=== PATIENT | female | born 1950 ===

== ENCOUNTER 2018-05-30 13:04 | Inpatient (IN) ==
--- NOTE | 2018-05-30 09:47 | Discharge Summary ---
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: with fdc use Diabetes mellitus complication status: with unspecified complications Qualified Code(s): E11.8 - Type 2 diabetes mellitus with unspecified complications; Z79.4 - longterm (current) use of insulin (4) Asthma Priority: Secondary Status: Chronic Qualifiers: Asthma severity: unspecified severity Asthma persistence: unspecified Asthma complication type: unspecified Qualified Code(s): J45.909 - Unspecified asthma, uncomplicated (5) JAYDEN (obstructive sleep apnea) Priority: Secondary Status: Chronic (6) HTN (hypertension) Priority: Secondary Status: Chronic Qualifiers: Hypertension type: unspecified Qualified Code(s): I10 - Essential (primary) hypertension (7) CKD (chronic kidney disease) stage 3, GFR 30-59 ml/min Priority: Secondary Status: Chronic (8) Gout Priority: Secondary Status: Chronic Qualifiers: Gout site: unspecified site Gout etiology: unspecified cause Chronicity: unspecified Qualified Code(s): M10.9 - Gout, unspecified (9) Obesity Priority: Secondary Status: Chronic Qualifiers: Obesity type: unspecified obesity type Obesity classification: adult class 3 (BMI >= 40) Serious obesity comorbidity presence: unspecified whether serious comorbidity present Body mass index: BMI 50.0-59.9 Qualified Code(s): E66.01 - Morbid (severe) obesity due to excess calories; Z68.43 - Body mass index (BMI) 50-59.9, adult (10) History of breast cancer Priority: Secondary Status: Chronic - Hospital Course Hospital course: Ms. Pearl is a 67 year old female POD#1 Date of procedure: 05/30/18 Pre-op diagnosis: Left shoulder cuff tear arthropathy Post-op diagnosis: same Procedure: Procedure: Total Shoulder Replacment Reverse, left Patient states doing well with no concerns. States pain is well controlled with her home dose of Tramadol. States intent to use Tramadol and not use Oxycodone. *BP results reviewed and discussed with nursing - patient requiring manual check in leg secondary to IV and surgery in upper extremities. At baseline measures with manual checks. Alert and oriented x 3 sitting in chair eating lunch. Left arm in sling. No swelling noted. 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 Neurovascularly intact b/l UE. Home with outpatient therapy today Restrictions reviewed Patient to keep outpatient follow up as scheduled. Short CBC 05/31/18 05/30/18 Range/Units 04:57 16:30 Hgb 12.2 12.6 (11.5-15.4) g/dL Hct 37.0 39.3 (35.3-44.9) % BMP 05/31/18 Range/Units 04:57 Sodium 133 L (136-145) mEq/L Potassium 4.0 (3.5-5.1) mEq/L Chloride 99 (98-107) mEq/L Carbon Dioxide 25 (23-29) mEq/L BUN 19 (8-23) mg/dL Creatinine 1.02 (0.60-1.20) mg/dL Glucose 271 H (70-105) mg/dL Calcium 8.9 (8.6-10.3) mg/dL Vital Signs Temp Pulse Resp BP Pulse Ox 05/31/18 09:34 147/93 05/31/18 08:16 98.3 F 78 18 178/127 93 05/31/18 04:33 98.8 F 98 18 150/79 94 05/31/18 03:59 14 94 05/31/18 03:24 98.7 F 90 16 151/76 96 05/30/18 23:25 98.3 F 94 17 151/78 97 05/30/18 20:50 98.2 F 85 15 142/85 98 05/30/18 19:50 98.4 F 91 15 163/92 92 05/30/18 19:21 98.7 F 84 17 123/79 97 05/30/18 18:50 98.2 F 88 16 149/88 97 05/30/18 18:20 84 16 141/88 94 05/30/18 17:50 84 16 130/82 97 05/30/18 17:35 98.2 F 89 14 132/84 97 05/30/18 17:32 98 05/30/18 17:20 98.7 F 83 16 126/82 97 Intake and Output 05/31/18 05/31/18 05/31/18 07:59 15:59 23:59 Intake Total 200 / 200 240 / 240 Balance 200 / 200 240 / 240 Intake: Oral 200 / 200 240 / 240 Other: Meal Breakfast Percent of Meal Consumed 65% Weight 117.934 kg Blood Glucose* 254 278 Patient Weight 05/31/18 23:59 Weight 117.934 kg - Time Spent with Patient Total time spent providing and/or coordinating discharge services: - Discharge Medications Home Medications: Albuterol Sulfate [Proair Hfa] 2 puff IH Q4-6H PRN 05/30/18 [History] Allopurinol [Zyloprim 300 MG] 300 mg PO DAILY 05/30/18 [History] Anastrozole [Arimidex] 1 mg PO DAILY 05/30/18 [History] Aspirin [Adult Aspirin Regimen] 81 mg PO DAILY 05/30/18 [History] Azithromycin 250 mg PO PER PKG DI 05/30/18 [History] Budesonide/Formoterol 80/4.5 [Symbicort 80/4.5] 2 puff IH BID 05/30/18 [History] Calcium Carbonate/Vitamin D3 [Caltrate 600 + D Soft Chew Tab] 1 tab PO DAILY 05/30/18 [History] Cetirizine HCl [24Hour Allergy] 10 mg PO DAILY 05/30/18 [History] Duloxetine HCl [Cymbalta] 60 mg PO DAILY 05/30/18 [History] Furosemide [Lasix] 40 mg PO DAILY 05/30/18 [History] Gabapentin [Neurontin] 400 mg PO BID 05/30/18 [History] Insulin LISPRO [HumaLOG] 10 - 30 unit SQ TIDAC 05/30/18 [History] Insulin NPH, HUMAN [HumuLIN N] 25 unit SQ QPM 05/30/18 [History] Insulin NPH, HUMAN [HumuLIN N] 30 unit SQ QAM 05/30/18 [History] Ipratropium/Albuterol Neb [Duoneb] 3 ml IH Q6HR 05/30/18 [History] Losartan Potassium 50 mg PO BID 05/30/18 [History] Melatonin 10 mg PO HS PRN 05/30/18 [History] Metoprolol Succinate 100 mg PO BID 05/30/18 [History] Montelukast [Singulair] 10 mg PO HS 05/30/18 [History] Multivitamin [One Daily Multivitamin] 1 tab PO DAILY 05/30/18 [History] Omeprazole [PriLOSEC] 20 mg PO DAILY 05/30/18 [History] Oxybutynin Chloride [Ditropan Xl] 10 mg PO DAILY 05/30/18 [History] Simvastatin [Zocor] 20 mg PO HS 05/30/18 [History] Spironolactone 25 mg PO DAILY 05/30/18 [History] Tramadol HCl [Ultram] 50 mg PO TID PRN 05/30/18 [History] Vit A/Vit C/Vit E/Zinc/Copper [Preservision Areds Tablet] 1 tab PO DAILY 05/30/18 [History] Allergies/Adverse Reactions: Allergy/AdvReac Type Severity Reaction Status Date / Time Amoxicillin [From Augmentin] AdvReac Vomiting Verified 05/30/18 13:57 blue dye AdvReac See Verified 05/30/18 13:57 Comments cefdinir AdvReac Itching Verified 05/30/18 13:57 clavulanic acid AdvReac Vomiting Verified 05/30/18 13:57 [From Augmentin] linezolid [From Zyvox] AdvReac See Verified 05/30/18 13:57 Comments morphine AdvReac Vomiting Verified 05/30/18 13:57 pentazocine [From Talwin] AdvReac Vomiting Verified 05/30/18 13:57 rifampin AdvReac Vomiting Verified 05/30/18 13:57 Date of admission: 05/30/18 Primary care physician: Adelfo Rodriguez MD Discharging clinician: Rell Camp - Patient Status Disposition: Home, Self-Care Condition: Good Functional capacity at discharge: independent ambulation Overall status at discharge: patient is progressing back to baseline - Discharge Instructions Follow Up With: Adelfo Rodriguez MD [Primary Care Provider] - Liana Obando PAC [Physician Size Worker] - 06/09/18 9:15 am Additional Instructions: Discharge Instructions: Total Shoulder Please call [facility] ([phone]), your Primary Care Physician, or report to the Emergency Room if you have any of the following symptoms: Nausea, vomiting, fever greater that 101.5, swelling, chest pain, shortness of breath, increased pain/redness/drainage/odor for your incision site, numbness/tingling, or any other concerning symptoms. ACTIVITY: Always keep your arm in the sling. Do not raise your arm away from your body. Do not use your arm to help with getting in or out of bed. No weight bearing permitted. Only perform those exercises given to you by your therapist. Incentive Spirometer 10 times an hour. MEDICATIONS: Upon discharge resume your home medications. Take all the medications as prescribed. Take a stool softener if taking narcotic pain medications. Stool softeners are only effective if you drink enough fluids. Drink 6-8 glass of water or fluids a day, unless this is not allowed for another health problem. Despite using stool softeners, if you haven't had a bowel movement in 3 days, please switch to a gentle laxative. Gentle laxatives are sold over the counter. You should have a bowel movement within 24 hours, if not call the office. You will be discharged from the hospital with a prescription for pain medication. You are encouraged to decrease the use of narcotic pain medication as tolerated. Should you require a refill, please call the office. [facility] prescribes narcotic pain medication for only 4-6 weeks after surgery. If you require pain medication beyond this time period, you may be referred to your Primary Care Physician or to the Pain Clinic for further evaluation. Plan ahead for refills on pain medication as many narcotics either need to be picked up at the office or mailed. It is best to call 48-72 hours in advance of needing a prescription refill so you don't run out of medication. To help control the post-operative pain, you may take NSAIDs (Aleve,Advil, Motrin, Ibuprofen, Naprosyn) or Tylenol as prescribed on the bottle in addition to the pain medication. WOUND CARE: Leave the dressing on for 7-10 days. You may change the dressing if it becomes saturated greater than 50%. Do not get the dressing wet at anytime. Wash your hands with antibacterial soap, rinse and dry prior to any wound care. If you have minoo the visiting nurse or rehab facility can remove the stapes 10-14 days after surgery and place steri-strips across the wound. Leave the steri-strips in place until they fall off on their own. You may let water from the shower run on top of the steri-strips. If you do not have a visiting nurse or rehab facility, you will need to return to the office at 10-14 days for the minoo to be removed. If you have itching or redness around the dressing call the office. FOLLOW-UP: Please follow up with your surgeon in the orthopedic clinic, as scheduled - Diet and Activity Activity: as per physical therapy Diet: advance to your usual diet
[~2018-05-30 13:04] MED LIST: Acetaminophen IV 1,000 MG/100 ML INFUS..BTL IVPB ONE; Celecoxib 100 MG CAPSULE PO ONE; Famotidine 20 MG/2 ML VIAL IVP ONE; Ringers Solution, Lactated 1,000 ML IVC SCH
[2018-05-30] MEDS ORDERED: *HR* Propofol 200 MG/20 ML VIAL IVP ONE (13:24)
[2018-05-30] MEDS ORDERED: *HR* Midazolam HCl 2 MG/2 ML VIAL ONE (13:24)
[2018-05-30] MEDS ORDERED: *HR* FentaNYL (PF) 100 MCG/2 ML VIAL ONE (13:24)
[2018-05-30] MEDS ORDERED: Lidocaine -MPF 2% 2 ML VIAL ONE (13:25)
[2018-05-30] MEDS ORDERED: Clindamycin 900 MG/50 ML 900 MG/50 ML IV.SOLN IVPB ONE ×2 (13:30→14:01)
[2018-05-30] MEDS ORDERED: *HR* Promethazine 25 MG/ML VIAL IVP PRN (13:39)
[2018-05-30] MEDS ORDERED: *HR* OxyCODONE Immed Rel 5 MG TABLET PO PRN ×2 (13:39→17:23)
[2018-05-30] MEDS ORDERED: *HR* HYDROmorphone (PF) 1 MG/ML SYRINGE IVP PRN (13:39)
[2018-05-30] MEDS ORDERED: *HR* Labetalol 20 MG/4 ML SYRINGE IVP PRN (13:39)
--- NOTE | 2018-05-30 13:41 | History & Physical Report ---
Date of Encounter: 05/30/18 Time of Encounter: 13:41 24 Hour HP Update - Instructions Instructions: If the History and Physical is less than 30 days old and was completed prior to A.M. admission and or procedure and has NOT been updated on calendar day of procedure please complete this update prior to performing procedure. - Update Patient reports changes in Medical Condition: No Changes in examination, assessment, or condition: No Changes in Medication: No Preop tests/diagnostics Reviewed: Yes Surgery Remains Indicated: Yes Consent for Planned Operative Procedure(s) Verified: Yes - Pre-Operative Checklist Preoperative Checklist Indicated: No Prophylactic Antibiotic Ordered: Yes Is VTE Prophylaxis Indicated?: Yes
[2018-05-30] MEDS ORDERED: ROPIVACAINE HCL/PF 0.5% 30 ML VIAL ONE (14:00)
[2018-05-30] MEDS ORDERED: Bupivacaine/Clonidine Syringe 1 EACH SYRINGE ONE (14:00)
[2018-05-30] MEDS ORDERED: Ethanol\\Acetic Acid\\Na Ace\\Ben 1,000 ML IRRIG.SOLN IR ONE (14:03)
--- NOTE | 2018-05-30 14:03 | Anesthesia Evaluation PreOp ---
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 HX Other Medical History: Renal (CKD), Other (MO) Anesthesia History: No Prior Anesthetic Complications : No Alcohol Use: none Drug use: none Medications and Allergies Allergy/AdvReac Type Severity Reaction Status Date / Time Amoxicillin [From Augmentin] AdvReac Vomiting Verified 05/30/18 13:57 blue dye AdvReac See Verified 05/30/18 13:57 Comments cefdinir AdvReac Itching Verified 05/30/18 13:57 clavulanic acid AdvReac Vomiting Verified 05/30/18 13:57 [From Augmentin] linezolid [From Zyvox] AdvReac See Verified 05/30/18 13:57 Comments morphine AdvReac Vomiting Verified 05/30/18 13:57 pentazocine [From Talwin] AdvReac Vomiting Verified 05/30/18 13:57 rifampin AdvReac Vomiting Verified 05/30/18 13:57 - Meds/Allergy Pre-op Review Medications Reviewed: Yes Allergies Reviewed: Yes Beta Blockers on Current Med List: Yes (Metoprolol today 0700) Anesthesia Results - Labs Laboratory Tests 05/25/18 05/27/18 05/27/18 15:22 15:50 15:50 Hgb 13.2 Hct 40.4 Plt Count 233 PT 11.3 INR 1.0 APTT 31.8 Sodium 140 Potassium 3.3 L BUN 23 Creatinine 1.08 - Imaging EKG: report reviewed (SR) Additional studies: ECHO 2017 EF 60%, moderate diastolic dysfunction Anesthesia Exam O2 Sat Height 1.5 m Height 1.5 m Height 1.5 m Weight 117.934 kg Weight 117.934 kg Weight 117.934 kg O2 Sat by Pulse Oximetry 95 O2 Sat by Pulse Oximetry 95 Vital Signs Temp Pulse Resp BP Pulse Ox 98.2 F 87 18 157/83 95 05/30/18 13:38 05/30/18 13:38 05/30/18 13:38 05/30/18 13:38 05/30/18 13:38 Height: 4'11 Weight: 260 lbs NPO (# of Hours): MN Pain Scale: 0 - HEENT Pupil (Motor): Pupils equal, EOMI Mallampati: III Teeth: Poor dentition (chipped teeth) Oral Opening: Less than or equal to 3 - RAIL TRACK LAYER LOC: Oriented RAIL TRACK LAYER Motor: Normal RUE, Normal LUE, Normal RLE, Normal LLE, Normal Face RAIL TRACK LAYER Sensory: Normal: RUE, LUE, RLE, LLE, Face - Cardiac Rhythm: Regular Murmur: None JVD: No Carotid Bruit: No - Pulmonary Breath Sounds: bilateral Clear Respiratory Effort: Symmetrical Anesthesia Assess/Plan ASA Score: 3 (HTN JAYDEN [place] CKD) Level of consciousness: Cooperative Anesthetic Plan: General, Regional Nerve Block Autologous Blood: No Monitoring Plan: Standard Monitors Recovery Plan: PACU (Discussed GA, RA, agrees to proceed)
--- NOTE | 2018-05-30 14:53 | Anesthesia Procedures ---
Date of Encounter: 05/30/18 Time of Encounter: 14:51 Procedures: Anesthesia - Nerve Block Procedure Date: 05/30/18 Time: 14:51 Allergies/Adv Reactions: amoxicillin, blue dye, cefdinir,clavulanic acid linezolid Pre-op Diagnosis: left rotator cuff arthropathy Surgical Procedure: left total shoulder Checklist: Correct Patient Identifier, Correct procedure, History checked Correct side: Left Blood Thinner: No Monitor Applied: BP, Pulse Oximetry Supplemental Oxygen via Nasal Cannula (L/min): 2 Sedation: Versed (mg): 2 Sedation: Fentanyl (mcg): 50 Indication: Post Op Analgesia Pre-op Neuro Deficits: No Block Type: Supraclavicular, Other (scb, icb) Sterile Technique: Yes Ultrasound used: Yes Anatomy identified: Yes Visual spread of Local: Yes Neuro Stimulation: No Blood on Needle Aspiration: No Smooth Injection of Local: Yes Pain with Injection of Local: No Prep: Chlorhexadine Needle: 21 x 100 mm Stimuplex Local: 0.25% Bupivicaine w/Clonidine 20 mcg/cc (10ml with SCB and 10ml with ICB), Ropivacaine (30ml 0.5 % with 8mg decadron) Volume (cc): 50 Number of Attempts: 1 Complications: None/effective block Vitals: Vital Signs/O2 Sat, Most Current Temp Pulse Resp BP Pulse Ox 98.2 F 87 18 157/83 95 05/30/18 13:54 05/30/18 13:54 05/30/18 13:54 05/30/18 13:54 05/30/18 13:54
[2018-05-30] MEDS ORDERED: *HR* PHENYLEPHRINE 1,000 MCG/10 ML SYRINGE IVP ONE (15:22)
[2018-05-30] MEDS ORDERED: Ondansetron 4 MG/2 ML VIAL ONE (15:25)
--- NOTE | 2018-05-30 15:52 | Orthopedic Operative Note ---
Date of procedure: 05/30/18 Pre-op diagnosis: Left shoulder cuff tear arthropathy Post-op diagnosis: same Procedure: Procedure: Total Shoulder Replacment Reverse, left Estimated blood loss: 50 cc Hardware: Metal and polyethylene replacement: Arthrex 24, +2 , 25 screw glenoid baseplate, 4 locking 5.5 screw, 36+4 glenosphere, 5 humeral stem, poly insert 3 Exam Under anesthesia: Full motion no instability Procedural Notes: Irreparable tear rotator cuff. Operative procedure: The patient was brought to the operating room and placed on the operating room table. After general anesthesia was administered the operative shoulder was examined. Findings were noted. The patient was placed in the modified beachchair position. All pressure points were padded appropriately. And the head was stabilized in the neutral position. The operative extremity was prepped and draped in the sterile surgical fashion. The patient received IV antibiotics prior to skin incision. A standard deltopectoral approach was made to the operative shoulder. Incision was made to the skin and subcutaneous tissue,hemo stasis was obtained with Bovie cautery. Using careful blunt dissection the cephalic vein was identified and mobilized medially. The deltopectoral interval was developed and the clavipectoral fascia was incised. The subscap was released off the lesser tuberosity and tagged with #2 FiberWire suture subscap was irreparable. The humerus was dislocated patient noted to have irreparable tear supraspinatus tendon, and the humeral cut was made along the anatomic neck. Anterior and posterior Bankart retractors were placed to expose the glenoid. The glenoid guide was seated and the centering hole was made. It was reamed with the appropriate reamer. The 24, +2, 25 mm screw, baseplate was seated and secured with 4 locking 5.5 screw. The baseplate was irrigated and dried and the 36+4 Glenosphere was seated and secured with the Pollock taper. The Pollock taper was tested and found to be secure, glenosphere fixation was secondarily secured with the central screw. Th e humerus was redislocated and prepared with the diaphyseal reamers, followed by a broaching process up to the appropriate size 5 in the patient's anatomic version. The metaphyseal reamer was then utilized. Trial reduction found the shoulder to be relocatable. Trial components were removed and 5 stem was impacted in place in the patient's anatomic version. Trial reduction found the shoulder to be relocatable and stable with the appropriate 3 Trial component was removed and the real implant was seated and secured the shoulder was reduced. The shoulder had excellent motion and excellent stability and no evidence of dislocation. The deep tissue was irrigated with pulse irrigation. The PA close the shoulder. The deltopectoral interval was closed with a running #1 PDS suture, subcutaneous tissue was irrigated and closed with 0 PDS suture, the skin was closed with Dermabond. The patient was placed in a sterile dressing, abduction brace and extubated. The patient was then transferred to the recovery room in stable condition. Anesthesia: GETA Surgeon: Rell Camp Was there an miner assistant present: Yes Contact Lens Technician: Lorri Caba Estimated blood loss (cc): 50 Condition: stable Disposition: PACU
--- NOTE | 2018-05-30 16:38 | Anesthesia Evaluation Post Op ---
Date of Encounter: 05/30/18 Time of Encounter: 16:45 - Vital Signs Vital Signs: Vital Signs/O2 Sat/Glucose, Most Current Temp Pulse Resp BP Pulse Ox 05/30/18 16:30 83 18 142/83 93 05/30/18 16:20 83 18 141/81 93 05/30/18 16:15 84 16 151/85 94 05/30/18 16:10 98.3 F 100 16 155/93 97 05/30/18 13:54 98.2 F 87 18 157/83 95 05/30/18 13:38 98.2 F 87 18 157/83 95 - Lungs Lungs: Clear Ascult./Percussion - Airway Airway: Non-obstructed - Cardiovascular Regular Rate - Mental Status Mental Status: Alert & Oriented, Answers Appropriately - Pain Pain Scale: 0 - Nausea Vomiting Nausea Vomiting: Not Present - Hydration Hydration: Ice chips - Discharge PostOp Status: Transfer Patient to floor
[2018-05-30 17:13] LABS: Hematocrit 39.3 % (35.3-44.9); Hemoglobin 12.6 g/dL (11.5-15.4)
[2018-05-30] MEDS ORDERED: Naloxone 0.4 MG/ML INJ IVP PRN (17:23)
[2018-05-30] MEDS ORDERED: Ringers Solution, Lactated 1,000 ML IVC SCH (17:23)
[2018-05-30] MEDS ORDERED: Dextrose Gel 15 GM/37.5 ML TUBE PO PRN ×2 (17:23)
[2018-05-30] MEDS ORDERED: MOM Conc 10 ML UD.LIQ PO PRN (17:23)
[2018-05-30] MEDS ORDERED: Sennosides 8.6 MG TABLET PO PRN (17:23)
[2018-05-30] MEDS ORDERED: *HR* Dextrose 50 % in Water (Syg) 50 ML SYRINGE IVP PRN (17:23)
[2018-05-30] MEDS ORDERED: Temazepam 15 MG CAPSULE PO PRN (17:23)
[2018-05-30] MEDS ORDERED: Melatonin 3 MG TABLET PO PRN (17:23)
[2018-05-30] MEDS ORDERED: traMADol 50 MG TABLET PO PRN (17:23)
[2018-05-30] MEDS ORDERED: *HR* OxyCODONE/APAP 5/325 TABLET PO PRN (17:23)
[2018-05-30] MEDS ORDERED: Ondansetron 4 MG/2 ML VIAL IVP PRN (17:23)
[2018-05-30] MEDS ORDERED: D5% in Water 1,000 ML IVC PRN (17:23)
[2018-05-30] MEDS: Insulin LISPRO 300 UNITS/3 ML VIAL SQ SCH (17:54)
[2018-05-30] MEDS ORDERED: Clindamycin 900 MG/50 ML 900 MG/50 ML IV.SOLN IVPB SCH (18:00)
[2018-05-30] MEDS ORDERED: Insulin NPH 100 UNIT/ML (x5UNIT) SQ SCH (18:00)
[2018-05-30] MEDS ORDERED: *HR* Enoxaparin 30 MG/0.3 ML SYRINGE SQ SCH (18:00)
[2018-05-30] MEDS: *HR* Enoxaparin 30 MG/0.3 ML SYRINGE SQ SCH (18:49)
[2018-05-30] MEDS: Ipratropium/Albuterol Neb 3 ML IH SCH ×2 (18:56→22:13)
[2018-05-30] MEDS: Gabapentin 400 MG CAPSULE PO SCH (20:37)
[2018-05-30] MEDS: Metoprolol XL (24 HR) Succ 50 MG TAB.ER.24H PO SCH (20:37)
[2018-05-30] MEDS ORDERED: Insulin LISPRO 300 UNITS/3 ML VIAL SQ SCH (21:00)
[2018-05-30] MEDS: Clindamycin 900 MG/50 ML 900 MG/50 ML IV.SOLN IVPB SCH (22:12)
[2018-05-31] MEDS: Budesonide/Formoterol 80/4.5 MDI IH SCH ×2 (00:10→10:44)
[2018-05-31] MEDS: Ipratropium/Albuterol Neb 3 ML IH SCH ×2 (03:59→10:44)
[2018-05-31 05:35] LABS: Hemoglobin 12.2 g/dL (11.5-15.4)
[2018-05-31 05:55] LABS: BUN/Creatinine Ratio 19 (6-26); Blood Urea Nitrogen 19 mg/dL (8-23); Calcium 8.9 mg/dL (8.6-10.3); Carbon Dioxide 25 mEq/L (23-29); Chloride 99 mEq/L (98-107); Glucose 271 mg/dL (70-105); Osmolality,Calculated 288 (280-300); Sodium 133 mEq/L (136-145); eGFR For Non-African Americans 54 (> 60)
--- NOTE | 2018-05-31 06:36 | Orthopedics Progress Note ---
Date of Encounter: 05/31/18 Time of Encounter: 06:35 Subjective Interval history: Patient was seen this morning doing well without complaints. Afebrile vital signs stable. Operative extremity: Neurovascularly intact Dressing clean dry and intact Calves nontender Assessment and plan: Continue with postoperative care Hematocrit 37 plan for discharge today Objective Vital signs: Vital Signs Temp Pulse Resp BP Pulse Ox 05/31/18 04:33 98.8 F 98 18 150/79 94 05/31/18 03:59 14 94 05/31/18 03:24 98.7 F 90 16 151/76 96 05/30/18 23:25 98.3 F 94 17 151/78 97 05/30/18 20:50 98.2 F 85 15 142/85 98 05/30/18 19:50 98.4 F 91 15 163/92 92 05/30/18 19:21 98.7 F 84 17 123/79 97 05/30/18 18:50 98.2 F 88 16 149/88 97 05/30/18 18:20 84 16 141/88 94 05/30/18 17:50 84 16 130/82 97 05/30/18 17:35 98.2 F 89 14 132/84 97 05/30/18 17:32 98 05/30/18 17:20 98.7 F 83 16 126/82 97 05/30/18 16:50 98.2 F 82 18 143/84 99 05/30/18 16:40 98.2 F 84 18 128/78 97 05/30/18 16:30 83 18 142/83 93 05/30/18 16:20 83 18 141/81 93 05/30/18 16:15 84 16 151/85 94 05/30/18 16:10 98.3 F 100 16 155/93 97 05/30/18 13:54 98.2 F 87 18 157/83 95 05/30/18 13:38 98.2 F 87 18 157/83 95 Intake and Output 05/30/18 05/30/18 05/31/18 15:59 23:59 07:59 Intake Total 200 / 200 Output Total 50 / 50 Balance -50 / -50 200 / 200 Intake: Oral 200 / 200 Output: Estimated Blood Loss 50 / 50 Other: # Voids 1 Weight 117.934 kg 117.934 kg Blood Glucose* 209 251 254 Patient Weight 05/31/18 23:59 Weight 117.934 kg - Labs CBC & BMP: 05/31/18 04:57 05/31/18 04:57 Labs: Abnormal lab results Sodium 133 mEq/L (136-145) L 05/31/18 04:57 Est GFR (Non-Af Amer) 54 (> 60) L 05/31/18 04:57 Glucose 271 mg/dL (70-105) H 05/31/18 04:57 POC Glucose 209 mg/dL (70-99) H 05/30/18 13:17 Consult Discharge Plan - Plan Referrals: Adelfo Rodriguez MD [Primary Care Provider] -
[2018-05-31] MEDS: Clindamycin 900 MG/50 ML 900 MG/50 ML IV.SOLN IVPB SCH (06:41)
[2018-05-31] MEDS: *HR* Enoxaparin 30 MG/0.3 ML SYRINGE SQ SCH (06:41)
[2018-05-31] MEDS ORDERED: NON-FORMULARY MEDICATION 1 EACH EACH (Vit A/Vit C/Vit E/Zinc/Copper [Preservision Areds Ta PO SCH (09:00)
[2018-05-31] MEDS ORDERED: Multivit/Ca/Min/Fe/FA 1 TAB TABLET PO SCH (09:00)
[2018-05-31] MEDS ORDERED: Anastrozole 1 MG TABLET PO SCH (09:00)
[2018-05-31] MEDS ORDERED: Loratadine 10 MG TABLET PO SCH (09:00)
[2018-05-31] MEDS ORDERED: Furosemide 40 MG TABLET PO SCH (09:00)
[2018-05-31] MEDS ORDERED: Cholecalciferol (D-3) 1,000 UNIT TABLET PO SCH (09:00)
[2018-05-31] MEDS ORDERED: Spironolactone 25 MG TABLET PO SCH (09:00)
[2018-05-31] MEDS ORDERED: Insulin NPH 100 UNIT/ML (x5UNIT) SQ SCH (09:00)
[2018-05-31] MEDS ORDERED: Aspirin Enteric Coated 81 MG Tablet PO SCH (09:00)
[2018-05-31 09:35] VITALS: BP 147/93
[2018-05-31] MEDS: Gabapentin 400 MG CAPSULE PO SCH (09:37)
[2018-05-31] MEDS: Metoprolol XL (24 HR) Succ 50 MG TAB.ER.24H PO SCH (09:37)
[2018-05-31] MEDS: Insulin LISPRO 300 UNITS/3 ML VIAL SQ SCH ×2 (09:39→11:43)
== END 2018-05-31 13:40 | disposition home or self-care (01) | DRG 483 ==
LOC: SAMDAY 13:04 → 3NENU 17:17
PROVIDERS: ADMIT Orthopaedic Surgery; ATTEND Orthopaedic Surgery

== ENCOUNTER 2018-12-21 10:09 | Observation (INO) ==
--- NOTE | 2018-12-21 10:37 | Emergency Department Note ---
Disposition Clinical Impression: Syncope Qualifiers: Syncope type: unspecified Qualified Code(s): R55 - Syncope and collapse CRF (chronic renal failure) Qualifiers: Chronic kidney disease stage: unspecified stage Qualified Code(s): N18.9 - Chronic kidney disease, unspecified Disposition: Admitted As Inpatient Condition: Fair Forms: ED Satisfaction Letter Time of Disposition: 13:06 General Adult HPI - General Chief complaint: ED Seizure Stated complaint: n/v Time Seen by Provider: 12/21/18 10:23 Source: EMS Limitations: no limitations Nursing Notes Reviewed: Yes Vital Signs Reviewed: Yes - History of Present Illness HPI Narrative: I did see the patient immediately upon arrival. The story is that she was sitting at the kitchen table and had lightheaded dizziness and she specifically denies vertigo and the did not feel that he was able to help her to her chair and then the patient had a syncopal episode. She did have generalized shaking for the entire time. She is not speaking during this time. This lasted for about one and a half minutes. She then was speaking gibberish, according to the for about 5 minutes after this. The patient currently denies any pain in the head or chest or abdomen or back. Does have some minimal mid posterior neck pain. She has a history of a heart stent and does take Plavix and low-dose aspirin but has not had a stroke in the past. No history of seizures. No biting of the tongue or blood in the mouth. No urinary incontinence. Social history: No smoking, alcohol, drugs. She is here with the and the daughter Pain Scale: 0 - Related Data Home Medications Medication Instructions Recorded Confirmed Albuterol Sulfate [Proair Hfa] 2 puff IH Q4-6H PRN 05/30/18 12/21/18 Allopurinol [Zyloprim 300 MG] 150 - 300 mg PO DAILY 05/30/18 12/21/18 Anastrozole [Arimidex] 1 mg PO DAILY 05/30/18 12/21/18 Aspirin [Adult Aspirin Regimen] 81 mg PO DAILY 05/30/18 12/21/18 Budesonide/Formoterol 80/4.5 2 puff IH BID 05/30/18 12/21/18 [Symbicort 80/4.5] Calcium Carbonate/Vitamin D3 1 tab PO BID 05/30/18 12/21/18 [Caltrate 600 + D Soft Chew Tab] Cetirizine HCl [24Hour Allergy] 10 mg PO DAILY 05/30/18 12/21/18 Duloxetine HCl [Cymbalta] 60 mg PO DAILY 05/30/18 12/21/18 Furosemide [Lasix] 40 mg PO DAILY 05/30/18 12/21/18 Gabapentin [Neurontin] 400 mg PO BID 05/30/18 12/21/18 Insulin LISPRO [HumaLOG] 10 - 30 unit SQ TIDAC 05/30/18 12/21/18 Insulin NPH, HUMAN [HumuLIN N] 25 - 30 unit SQ QAM 05/30/18 12/21/18 Insulin NPH, HUMAN [HumuLIN N] 25 unit SQ QPM 05/30/18 12/21/18 Ipratropium/Albuterol Neb [Duoneb] 3 ml IH Q6HR PRN 05/30/18 12/21/18 Losartan Potassium 50 mg PO DAILY 05/30/18 12/21/18 Melatonin 10 mg PO HS PRN 05/30/18 12/21/18 Metoprolol Succinate 100 mg PO BID 05/30/18 12/21/18 Montelukast [Singulair] 10 mg PO HS 05/30/18 12/21/18 Multivitamin [One Daily 1 tab PO DAILY 05/30/18 12/21/18 Multivitamin] Omeprazole [PriLOSEC] 20 mg PO BID 05/30/18 12/21/18 Oxybutynin Chloride [Ditropan Xl] 10 mg PO DAILY 05/30/18 12/21/18 Spironolactone 25 mg PO DAILY 05/30/18 12/21/18 Tramadol HCl [Ultram] 50 mg PO TID PRN 05/30/18 12/21/18 Isosorbide MONOnitrate [Isosorbide 60 mg PO DAILY 08/16/18 12/21/18 Mononitrate ER] Lactobacillus Acidophilus 1 each PO TID 10/05/18 12/21/18 [Acidophilus] Mupirocin [Centany At] 1 each TP TID 10/06/18 12/21/18 Vit A/Vit C/Vit E/Zinc/Copper 1 each PO BID 10/06/18 12/21/18 [Preservision Areds Tablet] Atorvastatin Calcium [Lipitor] 40 mg PO HS 12/14/18 12/21/18 Ranolazine [Ranexa] 1,000 mg PO BID 12/14/18 12/21/18 Previous Rx's Medication Instructions Recorded Clopidogrel [Plavix] 75 mg PO DAILY #30 tablet 08/17/18 Nitroglycerin 0.4 mg SL Q5MIN PRN #30 tab.subl 08/17/18 Allergies Allergy/AdvReac Type Severity Reaction Status Date / Time Amoxicillin [From Augmentin] AdvReac Vomiting Verified 12/14/18 08:43 blue dye AdvReac See Verified 12/14/18 08:43 Comments cefdinir AdvReac Itching Verified 12/14/18 08:43 clavulanic acid AdvReac Vomiting Verified 12/14/18 08:43 [From Augmentin] linezolid [From Zyvox] AdvReac See Verified 12/14/18 08:43 Comments morphine AdvReac Vomiting Verified 12/14/18 08:43 pentazocine [From Talwin] AdvReac Vomiting Verified 12/14/18 08:43 rifampin AdvReac Vomiting Verified 12/14/18 08:43 Review of Systems: Constitutional: No fever Vision: No blurred vision ENT: No rhinorrhea Respiratory: No cough Allergic: No allergies : No blood in urine GI: No blood in stool Hematologic: No bruising Dermatologic: No skin rash Musculoskeletal: No pain in the extremities Neuro: No numbness of the extremities Past Medical History - Past Medical History Medical history: Reports: arthritis, cancer, coronary artery disease, diabetes, fibromyalgia, GERD, hyperlipidemia, hypertension, renal disease Surgical history: Reports: angioplasty/stent, , hysterectomy, orthopedic, other Psychiatric history: Reports: no psych history - Social History Smoking Status: Never smoker Smokeless Tobacco Status: No Alcohol use: Reports: none Drug use: Reports: none Physical Exam CONSTITUTIONAL: Well-appearing; well-nourished; A&O X3, in no apparent distress HEAD: Normocephalic; atraumatic. EYES: PERRL, EOMI, no scleral icterus NOSE: The nose is normal in appearance without rhinorrhea NECK: Supple without rigidity, no DONY, when I palpate the posterior midline of the neck she said this makes her neck feel better RESP: Normal chest excursion with respiration; breath sounds clear and equal bilaterally; no wheezes, rhonchi, or rales CARD: Regular rhythm, without murmurs, rub or gallop ABD: Non-distended; non-tender, soft, without rigidity, rebound or guarding SKIN: Normal for age and race; warm and dry; no apparent lesions, no rash NEUROLOGICAL: Patient is alert and oriented times three. Cranial nerves III- XII are intact. Sensory and motor functions are intact. Strength is 5/5 for flexion and extension in all 4 extremities. Finger to nose testing is equal and normal bilaterally. EXTREMITIES: Pulses are 2 plus and equal times 4 extremities, no peripheral edema or calf muscle pain. - General Limitations: no limitations General appearance: alert Course Vital Signs Temperature 98.3 F 12/21/18 10:17 Pulse Rate 57 12/21/18 10:17 Respiratory Rate 18 12/21/18 10:17 Blood Pressure 116/62 12/21/18 10:17 O2 Sat by Pulse Oximetry 97 12/21/18 10:17 Temperature 98.3 F 12/21/18 10:17 Pulse Rate 62 12/21/18 12:09 Respiratory Rate 16 12/21/18 12:09 Blood Pressure 99/55 12/21/18 12:09 O2 Sat by Pulse Oximetry 100 12/21/18 12:09 Oxygen Delivery Oxygen Delivery Room Air Medical Decision Making - MDM Narrative Medical decision making narrative: The patient has either syncopal episode or seizure and we do have workup in progress to further evaluate for this and the patient will be admitted to the hospital. I did review her EKG showing sinus bradycardia with a rate of 59 bpm and without acute ischemic change. I do not see evidence of WPW, Brugada syndrome, hypertrophic cardiomyopathy or prolonged QT or arrhythmic genic rate ventricular cardiomyopathy. The patient at this time is asymptomatic and speaking normally. This does not seem to be from a stroke. The patient is asymptomatic at this time. I do not suspect carotid or vertebral dissection as she is no pain over these locations. 1037 I did review the patient's test results. I did speak with Dr. Bingham who accepts the patient for admission. Her symptoms and clinical picture most suggestive of a syncopal episode and not a seizure. Additionally, the patient does have minimal elevation in the creatinine level which could represent hypovolemia and I did give her IV fluids. Patient will be admitted for further evaluation and monitoring for possible arrhythmia as well as IV fluid resusc itation. 1305 - Medical Records Medical records reviewed: Yes I reviewed the patient's medical records. - Lab Data Lab results reviewed: Yes I reviewed the patient's lab results. Result diagrams: 12/21/18 10:41 12/21/18 10:41 Lab Results 12/21/18 12/21/18 12/21/18 Range/Units 10:41 10:41 11:26 WBC 9.2 (4.3-11.1) K/mcL RBC 3.30 L (3.82-4.97) M/mcL Hgb 10.4 L (11.5-15.4) g/dL Hct 32.1 L (35.3-44.9) % MCV 97.3 (83.0-100.0) fL MCH 31.5 (28.0-33.3) pg MCHC 32.4 (31.6-35.5) g/dL RDW 15.2 H (11.5-14.5) % Plt Count 216 (140-400) K/mcL MPV 10.4 (9.4-12.4) fL Sodium 132 L (136-145) mEq/L Potassium 4.6 (3.5-5.1) mEq/L Chloride 102 (98-107) mEq/L Carbon Dioxide 26 (23-29) mEq/L BUN 39 H (8-23) mg/dL Creatinine 1.68 H (0.60-1.20) mg/dL Est GFR ( Amer) 37 L (> 60) Est GFR (Non-Af Amer) 30 L (> 60) BUN/Creatinine Ratio 23 (6-26) Glucose 105 (70-105) mg/dL Calculated Osmolality 284 (280-300) Calcium 9.2 (8.6-10.3) mg/dL Troponin I < 0.03 (< 0.04) ng/mL Urine Color Yellow (Yellow) Urine Clarity Clear (Clear) Urine pH 7.0 (5.0-8.0) pH Units Ur Specific [place] 1.020 (1.010-1.025) Urine Protein Negative (Neg-Trace) mg/dL Urine Glucose (UA) Normal (Normal) mg/dL Urine Ketones Negative (Negative) mg/dL Urine Blood Negative (Negative) Urine Nitrite Negative (Negative) Urine Bilirubin Negative (Negative) Urine Urobilinogen Normal (Normal) mg/dL Ur Leukocyte Esterase Negative (Negative) - Radiology Data Radiology results reviewed: Yes I reviewed the patient's radiology results.
[2018-12-21 10:50] LABS: Hematocrit 32.1 % (35.3-44.9); Hemoglobin 10.4 g/dL (11.5-15.4); Mean Corpuscular HGB Conc 32.4 g/dL (31.6-35.5); Mean Corpuscular Hemoglobin 31.5 pg (28.0-33.3); Mean Corpuscular Volume 97.3 fL (83.0-100.0); Mean Platelet Volume 10.4 fL (9.4-12.4); Platelet Count 216 K/mcL (140-400); Red Cell Distribution Width 15.2 % (11.5-14.5); White Blood Count 9.2 K/mcL (4.3-11.1)
[2018-12-21 11:10] LABS: BUN/Creatinine Ratio 23 (6-26); Blood Urea Nitrogen 39 mg/dL (8-23); Calcium 9.2 mg/dL (8.6-10.3); Carbon Dioxide 26 mEq/L (23-29); Chloride 102 mEq/L (98-107); Glucose 105 mg/dL (70-105); Osmolality,Calculated 284 (280-300); Potassium 4.6 mEq/L (3.5-5.1); Sodium 132 mEq/L (136-145); Troponin I < 0.03 ng/mL (< 0.04); eGFR For African Americans 37 (> 60); eGFR For Non-African Americans 30 (> 60)
[2018-12-21] MEDS ORDERED: 0.9 % Sodium Chloride 500 ML IVC ONE (11:57)
[2018-12-21 12:00] LABS: Bilirubin,Urine Negative (Negative); Blood,Urine Negative (Negative); Clarity,Urine Clear (Clear); Color,Urine Yellow (Yellow); Glucose,Urine (UA) Normal (Normal); Ketones,Urine Negative (Negative); Leukocyte Esterase,Urine Negative (Negative); Nitrite,Urine Negative (Negative); Protein,Urine Negative (Neg-Trace); Urobilinogen,Urine Normal (Normal)
--- NOTE | 2018-12-21 14:06 | Internal Med History&Physical ---
Date of Encounter: 12/21/18 Time of Encounter: 14:06 Internal Medicine - H&P: HPI Chief complaint: syncope History of present illness: Ms. Pearl is a 68 year old female that was put to the ER by his family after she experienced an episode of syncope. The patient was in her kitchen and then suddenly become lightheaded and her legs giveaway., At stated that all her body was shaking, when the patient regained consciousness, she was previously used for a few minutes however she denies numbness weakness or tingling most control of stool or urine. The patient was evaluated by the ER, they didn't feel that she has sever episode of seizure stating that her reported that during this episode she was " speaking gibberish" CT scan of the head was obtained and was no significant abnormalities, the patient was admitted for further evaluation of syncope. Past Med Surg Social Fam HX - Past Medical History Medical history: arthritis, cancer, coronary artery disease, diabetes, fibromy algia, GERD, hyperlipidemia, hypertension, renal disease Additional medical history: sleep apnea, ibs, tremors Psychiatric history: no psych history - Past Surgical History Surgical History: angioplasty/stent, , hysterectomy, orthopedic, other Additional surgical history: spinal fusion - Social History Smoking Status: Never smoker Smokeless Tobacco Status: No Alcohol use: none Drug use: none - Family History Mother Hx Family Cardiac Disorders: Yes (elarged heart, ) Hx Family Respiratory Disorders: Yes (asthma) Hx Family Endocrine Disorder: Yes (DM) Hx Family Neurologic Disorders: Yes (cva) Father Living Status: Hx Family Cardiac Disorders: Yes (cad, ND,HTN) Brother Hx Family Cardiac Disorders: Yes (HF) Hx Family Cancer: Yes (liver/pancreatic) Internal Medicine - H&P: Meds Albuterol Sulfate [Proair Hfa] 2 puff IH Q4-6H PRN 05/30/18 [History] Allopurinol [Zyloprim 300 MG] 150 mg PO DAILY 05/30/18 [History] Anastrozole [Arimidex] 1 mg PO DAILY 05/30/18 [History] Budesonide/Formoterol 80/4.5 [Symbicort 80/4.5] 2 puff IH BID 05/30/18 [History] Calcium Carbonate/Vitamin D3 [Caltrate 600 + D Soft Chew Tab] 1 tab PO BID 05/30/18 [History] Cetirizine HCl [24Hour Allergy] 10 mg PO DAILY 05/30/18 [History] Duloxetine HCl [Cymbalta] 60 mg PO DAILY 05/30/18 [History] Furosemide [Lasix] 40 mg PO DAILY 05/30/18 [History] Gabapentin [Neurontin] 400 mg PO BID 05/30/18 [History] Insulin LISPRO [HumaLOG] 10 - 25 unit SQ TIDAC 05/30/18 [History] Insulin NPH, HUMAN [HumuLIN N] 25 unit SQ QPM 05/30/18 [History] Insulin NPH, HUMAN [HumuLIN N] 30 unit SQ QAM 05/30/18 [History] Ipratropium/Albuterol Neb [Duoneb] 3 ml IH Q6HR PRN 05/30/18 [History] Melatonin 10 mg PO HS PRN 05/30/18 [History] Metoprolol Succinate 100 mg PO BID 05/30/18 [History] Montelukast [Singulair] 10 mg PO HS 05/30/18 [History] Multivitamin [One Daily Multivitamin] 1 tab PO DAILY 05/30/18 [History] Oxybutynin Chloride [Ditropan XL] 10 mg PO DAILY 05/30/18 [History] Spironolactone 25 mg PO DAILY 05/30/18 [History] Tramadol HCl [Ultram] 50 mg PO TID PRN 05/30/18 [History] Isosorbide MONOnitrate [Isosorbide Mononitrate ER] 60 mg PO DAILY 08/16/18 [History] Clopidogrel [Plavix] 75 mg PO DAILY #30 tablet 08/17/18 [Rx] Nitroglycerin 0.4 mg SL Q5MIN PRN #30 tab.subl 08/17/18 [Rx] Lactobacillus Acidophilus [Acidophilus] 1 each PO TID 10/05/18 [History] Mupirocin [Centany At] 1 each TP TID PRN 10/06/18 [History] Vit A/Vit C/Vit E/Zinc/Copper [Preservision Areds Tablet] 1 each PO BID 10/06/18 [History] Atorvastatin Calcium [Lipitor] 40 mg PO HS 12/14/18 [History] Ranolazine [Ranexa] 1,000 mg PO BID 12/14/18 [History] Aspirin [Lo-Dose Aspirin EC] 81 mg PO DAILY 12/22/18 [History] Losartan Potassium 50 mg PO DAILY 12/22/18 [History] Pantoprazole Sodium 40 mg PO DAILY 12/22/18 [History] Allergy/AdvReac Type Severity Reaction Status Date / Time Amoxicillin [From Augmentin] AdvReac Vomiting Verified 12/22/18 14:10 blue dye AdvReac See Verified 12/22/18 14:10 Comments cefdinir AdvReac Itching Verified 12/22/18 14:10 clavulanic acid AdvReac Vomiting Verified 12/22/18 14:10 [From Augmentin] linezolid [From Zyvox] AdvReac See Verified 12/22/18 14:10 Comments morphine AdvReac Vomiting Verified 12/22/18 14:10 pentazocine [From Talwin] AdvReac Vomiting Verified 12/22/18 14:10 rifampin AdvReac Vomiting Verified 12/22/18 14:10 All Systems PM: A 10-system review of systems was performed and is negative for pertinent findings except as documented above in the HPI. - Constitutional Vitals: Temp Pulse Resp BP Pulse Ox 98.3 F 72 16 128/73 100 12/21/18 10:17 12/21/18 13:41 12/21/18 13:41 12/21/18 13:41 12/21/18 13:41 General appearance: Present: A&O X 3 Exam: ` - Head Head exam: Present: atraumatic, normocephalic - Neck Neck exam general surgery: Present: supple, trachea midline. Absent: lymphadenopathy - Respiratory Respiratory exam: Present: CTAB. Absent: accessory muscle use, rales, rhonchi, wheezes - Cardiovascular Cardiovascular exam: Present: RRR, +S1, +S2. Absent: diastolic murmur, gallop, rubs, systolic murmur - GI/Abdominal GI/Abdominal exam: Present: normal bowel sounds, soft, no peritoneal signs. Absent: distended, tenderness - Extremities Exam Extremities exam: Present: warm, radial pulses palpable and symmetrical. Absent: calf tenderness, cyanotic, pedal edema Internal Med - H&P Results - Labs CBC & Chem 7: 12/23/18 04:31 12/23/18 04:31 Labs: Short CBC 06/26/19 Range/Units 10:41 WBC 9.2 (4.3-11.1) K/mcL Hgb 10.4 L (11.5-15.4) g/dL Hct 32.1 L (35.3-44.9) % Plt Count 216 (140-400) K/mcL BMP 12/21/18 10:41 Sodium 132 L Potassium 4.6 Chloride 102 Carbon Dioxide 26 BUN 39 H Creatinine 1.68 H Glucose 105 Calcium 9.2 Cardiac Enzymes 12/21/18 Range/Units 10:41 Troponin I < 0.03 (< 0.04) ng/mL Urine 12/21/18 Range/Units 11:26 Urine Color Yellow (Yellow) Urine Clarity Clear (Clear) Urine pH 7.0 (5.0-8.0) pH Units Ur Specific [place] 1.020 (1.010-1.025) Urine Protein Negative (Neg-Trace) mg/dL Urine Glucose (UA) Normal (Normal) mg/dL - Impressions ITS Impressions Head CT 12/21/18 10:29 IMPRESSION: 1.No acute intracranial abnormality. D/ / Moustapha Roberson MD / Moustapha Roberson MD Interpreting Provider: Moustapha Roberson MD Chest X-Ray 12/21/18 10:30 IMPRESSION: No acute cardiopulmonary disease D/ / Viraj Oreilly MD / Viraj Oreilly MD Interpreting Provider: Viraj Oreilly MD - Assessment and Plan (1) Syncope Status: Acute Assessment and plan: ASSESSMENT: - Syncope DD *vasovagal episode *TIA *Arrhythmia *Seizure PLAN: - Telemetry - Cardiac enzymes x 2 q 8hr - EKG now and in AM - 2D Echo - Carotid duplex - UA - Qualifiers: Syncope type: unspecified Qualified Code(s): R55 - Syncope and collapse (2) CAD (coronary artery disease) Status: Acute Assessment and plan: we'll continue her medication, the patient's chest pain free. Qualifiers: Coronary Disease-Associated Artery/Lesion type: [place] artery [place] vs. transplanted heart: [place] heart Associated angina: angina presence unspecified Qualified Code(s): I25.10 - Atherosclerotic heart disease of [place] coronary artery without angina pectoris (3) Asthma Status: Chronic Assessment and plan: we'll continue home inhalers Qualifiers: Asthma severity: unspecified severity Asthma persistence: unspecified Asthma complication type: unspecified Qualified Code(s): J45.909 - Unspecified asthma, uncomplicated (4) Breast CA Status: Chronic Assessment and plan: Her history patient will follow up as outpatient with oncology Qualifiers: Breast location: lower outer quadrant of breast Estrogen receptor status: unspecified Patient sex: female Laterality: left Qualified Code(s): C50.512 - Malignant neoplasm of lower-outer quadrant of left female breast (5) S/P coronary artery stent placement Status: Acute (6) Osteoarthritis Status: Acute Assessment and plan: Continue with home medications. Qualifiers: Osteoarthritis location: hip Osteoarthritis type: primary Laterality: bilateral Qualified Code(s): M16.0 - Bilateral primary osteoarthritis of hip (7) CKD (chronic kidney disease) stage 3, GFR 30-59 ml/min Status: Chronic Assessment and plan: The patient creatinine is slightly above her baseline, we will be holding lisinopril and Lasix for tonight, may resume once creatinine back to baseline. Avoid nephrotoxins meds and dose medication as per current eGFR (8) Hypertension Status: Chronic Assessment and plan: We will be holding lisinopril tonight for elevated creatinine, may resume when kidney function back to baseline. Qualifiers: Hypertension type: essential hypertension Qualified Code(s): I10 - Essential (primary) hypertension (9) Morbid obesity with BMI of 50.0-59.9, adult Status: Chronic Assessment and plan: Adapting healthy style was D/W the patient. - Time Spent With Patient Total time spent is greater than 50% in coordination of care (as documented) at patient's floor/unit and/or counseling patient:
[2018-12-21] MEDS ORDERED: Acetaminophen 325 MG TABLET PO PRN (14:19)
[2018-12-21] MEDS ORDERED: Ondansetron 4 MG/2 ML VIAL IVP PRN (14:19)
[2018-12-21] MEDS ORDERED: Naloxone 0.4 MG/ML INJ IVP PRN (14:19)
[2018-12-21] MEDS ORDERED: Ipratropium/Albuterol Neb 3 ML IH PRN (14:23)
[2018-12-21] MEDS ORDERED: traMADol 50 MG TABLET PO PRN (14:23)
[2018-12-21] MEDS ORDERED: Nitroglycerin 0.4 MG TAB.SUBL SL PRN (14:23)
[2018-12-21] MEDS ORDERED: *HR* Dextrose 50 % in Water (Syg) 50 ML SYRINGE IVP PRN (14:27)
[2018-12-21] MEDS ORDERED: D5% in Water 1,000 ML IVC PRN (14:27)
[2018-12-21] MEDS ORDERED: Dextrose Gel 15 GM/37.5 ML TUBE PO PRN ×2 (14:27)
[2018-12-21] MEDS: 0.9 % Sodium Chloride 1,000 ML IVC SCH (15:01)
[2018-12-21] MEDS ORDERED: Perflutren Lipid Microsphere 1.3 ML in 0.9 % Sodium Chloride 8.7 ML IVP ONE ×2 (15:28→16:41)
[2018-12-21] MEDS: Insulin LISPRO 300 UNITS/3 ML VIAL SQ SCH ×2 (16:55→20:31)
[2018-12-21 17:00] LABS: Estimated Average Glucose 183 mg/dl
[2018-12-21] MEDS: Metoprolol XL (24 HR) Succ 50 MG TAB.ER.24H PO SCH (19:57)
[2018-12-21] MEDS: Lactobacillus 1 EACH CAP.SPRINK PO SCH (19:57)
[2018-12-21] MEDS: Gabapentin 400 MG CAPSULE PO SCH (19:57)
[2018-12-21] MEDS: Ranolazine 500 MG TAB.ER.12H PO SCH (19:57)
[2018-12-21] MEDS: (Preservision Areds) PO SCH (20:00)
[2018-12-21] MEDS ORDERED: Melatonin 3 MG TABLET PO PRN (21:00)
[2018-12-21] MEDS: Budesonide/Formoterol 80/4.5 MDI IH SCH (23:49)
[2018-12-22] MEDS: 0.9 % Sodium Chloride 1,000 ML IVC SCH (03:42)
[2018-12-22 05:22] LABS: Basophils % 0.4 %; Eosinophils # 0.3 K/mcL (0.0-0.6); Eosinophils % 3.1 %; Hematocrit 31.8 % (35.3-44.9); Hemoglobin 10.4 g/dL (11.5-15.4); Immature Granulocytes % 0.9 % (0-4); Lymphocytes % 20.6 %; Mean Corpuscular HGB Conc 32.7 g/dL (31.6-35.5); Mean Corpuscular Hemoglobin 31.6 pg (28.0-33.3); Mean Corpuscular Volume 96.7 fL (83.0-100.0); Mean Platelet Volume 10.9 fL (9.4-12.4); Monocytes # 0.9 K/mcL (0.0-1.3); Monocytes % 9.1 %; Neutrophils # 6.3 K/mcL (1.6-8.9); Platelet Count 232 K/mcL (140-400); Red Blood Count 3.29 M/mcL (3.82-4.97); Red Cell Distribution Width 15.3 % (11.5-14.5); Segmented Neutrophils % 65.9 %; White Blood Count 9.6 K/mcL (4.3-11.1)
[2018-12-22 05:31] LABS: Prothrombin Time 11.4 Seconds (9.4-12.1)
[2018-12-22 05:34] LABS: Activated Partial Thrombo Time 32.9 Seconds (26.0-36.0)
[2018-12-22 05:35] LABS: Albumin 3.6 g/dL (3.5-5.7); Albumin/Globulin Ratio 1.2 (1.1-2.2); Bilirubin,Total 0.6 mg/dL (0.3-1.0); Chol/HDL Ratio 3.6 (0-4.9); Globulin 3.1 g/dL (2.4-3.5); Magnesium 2.1 mg/dL (1.6-2.6); Phosphorous 3.2 mg/dL (2.7-4.5); Total Protein 6.7 g/dL (6.4-8.9)
[2018-12-22] MEDS: Spironolactone 25 MG TABLET PO SCH (08:30)
[2018-12-22] MEDS: Aspirin Enteric Coated 81 MG Tablet PO SCH (08:31)
[2018-12-22] MEDS: Lactobacillus 1 EACH CAP.SPRINK PO SCH ×2 (08:31→20:46)
[2018-12-22] MEDS: Loratadine 10 MG TABLET PO SCH (08:31)
[2018-12-22] MEDS: Anastrozole 1 MG TABLET PO SCH (08:31)
[2018-12-22] MEDS: Gabapentin 400 MG CAPSULE PO SCH ×2 (08:33→20:45)
[2018-12-22] MEDS: Multivit/Ca/Min/Fe/FA 1 TAB TABLET PO SCH (08:34)
[2018-12-22] MEDS: Cholecalciferol (D-3) 1,000 UNIT TABLET PO SCH (08:34)
[2018-12-22] MEDS: Insulin LISPRO 300 UNITS/3 ML VIAL SQ SCH ×4 (08:39→20:38)
[2018-12-22] MEDS: Isosorbide MONOnitrate (24 HR) 30 MG TAB.ER.24H PO SCH (08:43)
[2018-12-22] MEDS: Ranolazine 500 MG TAB.ER.12H PO SCH ×2 (08:44→20:46)
[2018-12-22] MEDS: Metoprolol XL (24 HR) Succ 50 MG TAB.ER.24H PO SCH ×2 (08:45→20:45)
[2018-12-22] MEDS: (Preservision Areds) PO SCH ×2 (08:52→20:44)
[2018-12-22] MEDS: Budesonide/Formoterol 80/4.5 MDI IH SCH ×2 (10:20→20:28)
--- NOTE | 2018-12-22 12:07 | Internal Med Progress Note ---
Hospitalist Progress Note - Encounter Date of Encounter: 12/22/18 Time of Encounter: 11:58 - Subjective Interval History: Seen and examined at bedside-currently no focal deficits noted vital signs have been stable discussed treatment plan with the patient and was at bedside and verbalized understanding - Exam Vitals: Temp Pulse Resp BP Pulse Ox 97.7 F 68 16 105/65 97 12/22/18 11:43 12/22/18 11:43 12/22/18 11:43 12/22/18 11:43 12/22/18 11:43 Exam: Skin: Free of rash and discoloration. Eyes: Sclera is white. There is no discharge from eyes. ENMT: Oral/pharyngeal mucosa is normal in appearance. There is no discharge from nose or ears. Respiratory: Normal breath sounds with no crackles and wheezes bilaterally. CV: Heart is regular with no gallop or murmur. GI: Abdomen is flat and soft with no palpable mass or visceromegaly. : There is no tenderness in patient's flanks bilaterally. Neuro exam: He has good strength in upper and lower extremities. He has normal eye movements. Psychiatric: He has normal affect. His thought process is appropriate to the situation. - Assessment and Plan (1) Syncope Current Visit: Yes Status: Acute Assessment and Plan: ASSESSMENT: - Syncope DD *vasovagal episode *TIA *Arrhythmia *Seizure PLAN: - Telemetry - Cardiac enzymes x 2 q 8hr - EKG now and in AM - 2D Echo - Carotid duplex - UA 12/22 Patient did have a syncopal episode at home CT of head was negative Carotid duplex with nonstenotic plaque Echo is pending UA unremarkable We will check orthostatic vital signs Obtain EEG - (2) Breast CA Current Visit: No Status: Chronic Assessment and Plan: Her history patient will follow up as outpatient with oncology (3) Hypertension Current Visit: No Status: Chronic Assessment and Plan: without holding lisinopril tonight for elevated creatinine, may resume when kidney function back to baseline. 12/22 Kidney function is improving-however does have some hypotension we will hold for now and resume once at baseline-continue with metoprolol (4) Osteoarthritis Current Visit: No Status: Acute Assessment and Plan: Stable at this time continue with home medications and follow with primary care (5) Morbid obesity with BMI of 50.0-59.9, adult Current Visit: No Status: Chronic Assessment and Plan: Encourage lifestyle changes (6) Asthma Current Visit: No Status: Chronic Assessment and Plan: we'll continue home inhalers-appears to be controlled at this time (7) CKD (chronic kidney disease) stage 3, GFR 30-59 ml/min Current Visit: No Status: Chronic Assessment and Plan: the patient creatinine is slightly above her baseline, we will be holding lisinopril and Lasix for tonight, may resume one creatinine back to baseline. Avoid nephrotoxin med and that he then dosing of medication but current eGFR 12/22 We will continue to hold lisinopril and Lasix creatinine is improving however blood pressure is low at this time resume back to baseline (8) CAD (coronary artery disease) Current Visit: No Status: Acute Assessment and Plan: we'll continue her medication, the patient's chest pain free. (9) S/P coronary artery stent placement Current Visit: No Status: Acute Assessment and Plan: Continue with DAPT -had cardiac catheter 12/14/2018 with patent LAD - Time Spent with Patient Total time spent is greater than 50% in coordination of care (as documented) at patient's floor/unit and/or counseling patient: Internal Medicine: Result - Labs CBC & Chem 7: 12/22/18 03:58 12/22/18 03:58 Labs: Short CBC 12/22/18 Range/Units 03:58 WBC 9.6 (4.3-11.1) K/mcL Hgb 10.4 L (11.5-15.4) g/dL Hct 31.8 L (35.3-44.9) % Plt Count 232 (140-400) K/mcL Neutrophils # 6.3 (1.6-8.9) K/mcL BMP 12/22/18 03:58 Sodium 134 L Potassium 5.0 Chloride 102 Carbon Dioxide 26 BUN 32 H Creatinine 1.39 H Glucose 127 H Calcium 9.0 Liver Function 12/22/18 Range/Units 03:58 Total Bilirubin 0.6 (0.3-1.0) mg/dL AST 20 (13-39) Units/L ALT 17 (7-52) Units/L Alkaline Phosphatase 105 H (34-104) Units/L Albumin 3.6 (3.5-5.7) g/dL Urine 12/21/18 Range/Units 11:26 Urine Color Yellow (Yellow) Urine Clarity Clear (Clear) Urine pH 7.0 (5.0-8.0) pH Units Ur Specific [place] 1.020 (1.010-1.025) Urine Protein Negative (Neg-Trace) mg/dL Urine Glucose (UA) Normal (Normal) mg/dL - ABG Interpretation ABG results: PT/INR, D-dimer PT 11.4 Seconds (9.4-12.1) 12/22/18 03:58 - Impressions Impressions Chest X-Ray 12/21/18 10:30 IMPRESSION: No acute cardiopulmonary disease D/ / Viraj Oreilly MD / Viraj Oreilly MD Interpreting Provider: Viraj Oreilly MD Echocardiogram 12/21/18 14:22 Impressions: LVEF 65%. Definity echo contrast was used. LV diastolic dysfunction with elevated filling pressures. Normal right ventricular structure and function. Mild aortic stenosis. Mild tricuspid regurgitation. Mild pulmonary hypertension. Left Ventricular Wall Motion: Rest Echo Findings All wall segments showed normal motion. Findings: Study Quality * Technically challenging due to body habitus. ECG Findings * Normal sinus rhythm. Left Ventricle * Definity echo contrast was used. * LV diastolic dysfunction with elevated filling pressures. * No LVOTO. * LVEF 65%. * LV chamber size and wall thickness is grossly normal. Right Ventricle * Normal right ventricular structure and function. Left Atrium * Moderately dilated left atrium. Right Atrium * Normal right atrial size. Aortic Valve * Mild aortic stenosis. * Aortic valve not well visualized. * No aortic stenosis. Mitral Valve * Mitral valve not well visualized. * Trace mitral regurgitation. * No mitral stenosis. Tricuspid Valve * Tricuspid valve not well visualized. * Mild tricuspid regurgitation. * Estimated RA pressure is 8 mmHg. * Estimated RVSP is 36 mmHg. * Mild pulmonary hypertension. Pulmonic Valve * Pulmonic valve is not well visualized. * No pulmonic stenosis. * No pulmonic regurgitation. Pulmonary Artery * Pulmonary artery not well visualized. Aorta * Normally sized aortic root. Pericardium * There is no pericardial effusion present. Interatrial Septum * No evidence of PFO by color Doppler. IVC * The IVC is not dilated. * < 50% respiratory change. Consult Discharge Plan - Plan Referrals: Adelfo Rodriguez MD [Partnered Physician] - (Appointment has been requested.) ____ (1) Syncope Qualifiers: Syncope type: unspecified Qualified Code(s): R55 - Syncope and collapse (2) Breast CA Qualifiers: Breast location: lower outer quadrant of breast Estrogen receptor status: unspecified Patient sex: female Laterality: left Qualified Code(s): C50.512 - Malignant neoplasm of lower-outer quadrant of left female breast (3) Hypertension Qualifiers: Hypertension type: essential hypertension Qualified Code(s): I10 - Essential (primary) hypertension (4) Osteoarthritis Qualifiers: Osteoarthritis location: hip Osteoarthritis type: primary Laterality: bilateral Qualified Code(s): M16.0 - Bilateral primary osteoarthritis of hip (6) Asthma Qualifiers: Asthma severity: unspecified severity Asthma persistence: unspecified Asthma complication type: unspecified Qualified Code(s): J45.909 - Unspecified asthma, uncomplicated (8) CAD (coronary artery disease) Qualifiers: Coronary Disease-Associated Artery/Lesion type: [place] artery [place] vs. transplanted heart: [place] heart Associated angina: angina presence unspecified Qualified Code(s): I25.10 - Atherosclerotic heart disease of [place] coronary artery without angina pectoris
--- NOTE | 2018-12-22 15:52 | Electrocardiograph Report ---
[address] [address] Test Date: 2018-12-21 Pat Name: Ирина Pearl Department: EXAM1 Room: 3B13 Gender: Information Broker: : 1950 Requested By: Rafael Griffin Order Number: [id number] Reading MD: Kerwin Summers Measurements Intervals [place] Rate: 59 P: 90 SD: 71 QRS: 72 QRSD: 89 T: 46 QT: 464 QTc: 460 Interpretive Statements Sinus rhythm Short SD interval Low voltage, precordial leads Electronically Signed On 12-22-2018 15:50:59 EDT by Kerwin Summers
[2018-12-23 04:57] LABS: Basophils # 0.1 K/mcL (0.0-0.2); Basophils % 0.6 %; Eosinophils # 0.3 K/mcL (0.0-0.6); Eosinophils % 3.5 %; Hematocrit 32.5 % (35.3-44.9); Hemoglobin 10.7 g/dL (11.5-15.4); Lymphocytes # 2.2 K/mcL (0.6-4.6); Lymphocytes % 24.2 %; Mean Corpuscular HGB Conc 32.9 g/dL (31.6-35.5); Mean Corpuscular Hemoglobin 31.6 pg (28.0-33.3); Mean Corpuscular Volume 95.9 fL (83.0-100.0); Mean Platelet Volume 10.4 fL (9.4-12.4); Monocytes # 0.8 K/mcL (0.0-1.3); Monocytes % 8.7 %; Neutrophils # 5.6 K/mcL (1.6-8.9); Platelet Count 228 K/mcL (140-400); Red Blood Count 3.39 M/mcL (3.82-4.97); Red Cell Distribution Width 15.1 % (11.5-14.5); White Blood Count 8.9 K/mcL (4.3-11.1)
[2018-12-23 05:19] LABS: Calcium 9.2 mg/dL (8.6-10.3); Potassium 4.7 mEq/L (3.5-5.1)
[2018-12-23] MEDS: Aspirin Enteric Coated 81 MG Tablet PO SCH (08:22)
[2018-12-23] MEDS: Anastrozole 1 MG TABLET PO SCH (08:22)
[2018-12-23] MEDS: Spironolactone 25 MG TABLET PO SCH (08:22)
[2018-12-23] MEDS: Loratadine 10 MG TABLET PO SCH (08:22)
[2018-12-23] MEDS: Lactobacillus 1 EACH CAP.SPRINK PO SCH (08:22)
[2018-12-23] MEDS: Insulin LISPRO 300 UNITS/3 ML VIAL SQ SCH ×2 (08:23→11:50)
[2018-12-23] MEDS: Multivit/Ca/Min/Fe/FA 1 TAB TABLET PO SCH (08:23)
[2018-12-23] MEDS: Ranolazine 500 MG TAB.ER.12H PO SCH (08:23)
[2018-12-23] MEDS: Isosorbide MONOnitrate (24 HR) 30 MG TAB.ER.24H PO SCH (08:23)
[2018-12-23] MEDS: Cholecalciferol (D-3) 1,000 UNIT TABLET PO SCH (08:23)
[2018-12-23] MEDS: (Preservision Areds) PO SCH (08:23)
[2018-12-23] MEDS: Metoprolol XL (24 HR) Succ 50 MG TAB.ER.24H PO SCH (08:23)
[2018-12-23] MEDS: Gabapentin 400 MG CAPSULE PO SCH (08:23)
[2018-12-23] MEDS ORDERED: Isovue-370 500 ML BOTTLE IVP ONE (08:49)
[2018-12-23] MEDS ORDERED: *HR* LORazepam 2 MG/ML VIAL IVP ONE (09:32)
--- NOTE | 2018-12-23 09:49 | Electrocardiograph Report ---
[address] [place], [place] [address] Test Date: 2018-12-23 Pat Name: Ирина Pearl Department: 113 Room: 3B13 Gender: F Match Up Person: : 1950 Requested By: Oziel Epperson Order Number: [id number] Reading MD: Renaldo Dailey Measurements Intervals [place] Rate: 62 P: 62 CO: 194 QRS: 44 QRSD: 89 T: 18 QT: 394 QTc: 400 Interpretive Statements SINUS RHYTHM Electronically Signed On 12-23-2018 9:47:54 EDT by Renaldo Dailey
[2018-12-23] MEDS: Budesonide/Formoterol 80/4.5 MDI IH SCH (10:00)
[2018-12-23] MEDS ORDERED: Gadolinium Contrast Agent (WT Based) IV PRN (11:57)
--- NOTE | 2018-12-23 12:03 | Neurology - Consult Note ---
<Arjun Maxwell - Last Filed: 12/23/18 11:59> Date of Encounter: 12/23/18 Time of Encounter: 12:00 Assessment and Plan (1) Syncope Status: Acute Neurology consulted to evaluate for syncope DDX vasovagal, arrhythmia, VBI, seizure Patient reporting a syncopal event shortly after eating breakfast on Wednesday morning Family witnessed "jerking activity of the head and arms" with syncope No return of syncope or "jerking" since admission She is hemodynamically stable and negative for orthostasis EKG reviewed and was found to be negative for acute ischemic changes, troponin less than 0.03 Echocardiogram-65% EF, mild aortic stenosis, mild tricuspid regurgitation, mild pulmonary hypertension Carotid duplex scan-bilateral nonstenotic plaque UA unremarkable EEG- to r/o seizure Recommend MRI brain, MRA head to r/o VBI Consider checking TSH If w/u negative she may need long-term rhythm monitoring and outpatient cardiac evaluation Otherwise continue with medical and supportive care Neurology will continue to follow The neurological exam is nonfocal and nonlateralizing Qualifiers: Syncope type: unspecified Qualified Code(s): R55 - Syncope and collapse History of Present Illness Chief complaint: Syncope HPI: Ms. Pearl is a 68 year old female with a PMH of breast cancer, arthritis, CAD S/P PTCI, DM, fibromyalgia, HLD, HTN, JAYDEN and CKD. Neurology is consulted for evaluation of syncope. The patient reports that on Wednesday she had finished eating breakfast approximately one half hour before syncope occurred. She states that shortly after eating breakfast she began to feel weak all over so she sat down at the table to rest. She reports that at some point in time she decided to her head on the table as the weakness was not improving. She remembers nothing from that point on. Her found her lying on the table unresponsive and when he went to arouse her she was having jerking in her head and limbs and as they state "speaking gibberish". The daughter and are at the bedside and are considering at shaking may have looked like epileptic activity. The patient denies any dizziness/lightheadedness, dysphagia, dysarthria, ataxia, unilateral weakness or paresthesias, she denies chest pain, dyspnea or palpitations. Did also consciousness has not recurred since admission. She was seen and examined at the bedside and neurologically she is intact. A CT of the head was completed in the ED and unremarkable for acute intracranial abnormalities. I reviewed her vital signs and there have been no findings of orthostasis since his admission. Additionally, reviewed her EKG which did not identify any ischemic changes or arrhythmias. Neurology will continue to follow for evaluation of syncope. Thank you for consulting [place] [facility]. Past Med Surg Social Fam HX - Past Medical History Medical history: arthritis, cancer, coronary artery disease, diabetes, fibromyalgia, GERD, hyperlipidemia, hypertension, renal disease Additional medical history: sleep apnea, ibs, tremors Psychiatric history: no psych history - Past Surgical History Surgical History: angioplasty/stent, , hysterectomy, orthopedic, other Additional surgical history: spinal fusion - Social History Smoking Status: Never smoker Smokeless Tobacco Status: No Alcohol use: none Drug use: none - Family History Mother Hx Family Cardiac Disorders: Yes (elarged heart, ) Hx Family Respiratory Disorders: Yes (asthma) Hx Family Endocrine Disorder: Yes (DM) Hx Family Neurologic Disorders: Yes (cva) Father Living Status: Hx Family Cardiac Disorders: Yes (cad, [place],HTN) Brother Hx Family Cardiac Disorders: Yes (HF) Hx Family Cancer: Yes (liver/pancreatic) Medications and Allergies Albuterol Sulfate [Proair Hfa] 2 puff IH Q4-6H PRN 05/30/18 [History] Allopurinol [Zyloprim 300 MG] 150 mg PO DAILY 05/30/18 [History] Anastrozole [Arimidex] 1 mg PO DAILY 05/30/18 [History] Budesonide/Formoterol 80/4.5 [Symbicort 80/4.5] 2 puff IH BID 05/30/18 [History] Calcium Carbonate/Vitamin D3 [Caltrate 600 + D Soft Chew Tab] 1 tab PO BID 05/30/18 [History] Cetirizine HCl [24Hour Allergy] 10 mg PO DAILY 05/30/18 [History] Duloxetine HCl [Cymbalta] 60 mg PO DAILY 05/30/18 [History] Furosemide [Lasix] 40 mg PO DAILY 05/30/18 [History] Gabapentin [Neurontin] 400 mg PO BID 05/30/18 [History] Insulin LISPRO [HumaLOG] 10 - 25 unit SQ TIDAC 05/30/18 [History] Insulin NPH, HUMAN [HumuLIN N] 25 unit SQ QPM 05/30/18 [History] Insulin NPH, HUMAN [HumuLIN N] 30 unit SQ QAM 05/30/18 [History] Ipratropium/Albuterol Neb [Duoneb] 3 ml IH Q6HR PRN 05/30/18 [History] Melatonin 10 mg PO HS PRN 05/30/18 [History] Metoprolol Succinate 100 mg PO BID 05/30/18 [History] Montelukast [Singulair] 10 mg PO HS 05/30/18 [History] Multivitamin [One Daily Multivitamin] 1 tab PO DAILY 05/30/18 [History] Oxybutynin Chloride [Ditropan Xl] 10 mg PO DAILY 05/30/18 [History] Spironolactone 25 mg PO DAILY 05/30/18 [History] Tramadol HCl [Ultram] 50 mg PO TID PRN 05/30/18 [History] Isosorbide MONOnitrate [Isosorbide Mononitrate ER] 60 mg PO DAILY 08/16/18 [History] Clopidogrel [Plavix] 75 mg PO DAILY #30 tablet 08/17/18 [Rx] Nitroglycerin 0.4 mg SL Q5MIN PRN #30 tab.subl 08/17/18 [Rx] Lactobacillus Acidophilus [Acidophilus] 1 each PO TID 10/05/18 [History] Mupirocin [Centany At] 1 each TP TID PRN 10/06/18 [History] Vit A/Vit C/Vit E/Zinc/Copper [Preservision Areds Tablet] 1 each PO BID 10/06/18 [History] Atorvastatin Calcium [Lipitor] 40 mg PO HS 12/14/18 [History] Ranolazine [Ranexa] 1,000 mg PO BID 12/14/18 [History] Aspirin [Lo-Dose Aspirin EC] 81 mg PO DAILY 12/22/18 [History] Losartan Potassium 50 mg PO DAILY 12/22/18 [History] Pantoprazole Sodium 40 mg PO DAILY 12/22/18 [History] Allergy/AdvReac Type Severity Reaction Status Date / Time Amoxicillin [From Augmentin] AdvReac Vomiting Verified 12/22/18 14:10 blue dye AdvReac See Verified 12/22/18 14:10 Comments cefdinir AdvReac Itching Verified 12/22/18 14:10 clavulanic acid AdvReac Vomiting Verified 12/22/18 14:10 [From Augmentin] linezolid [From Zyvox] AdvReac See Verified 12/22/18 14:10 Comments morphine AdvReac Vomiting Verified 12/22/18 14:10 pentazocine [From Talwin] AdvReac Vomiting Verified 12/22/18 14:10 rifampin AdvReac Vomiting Verified 12/22/18 14:10 All Systems: The remainder of the systems were reviewed and are negative Review of Systems: REVIEW OF SYSTEMS GENERAL: Negative for any nausea, vomiting, fevers, chills NEUROLOGIC: Negative for any facial asymmetry, dysphagia, dysarthria, hemiparesis, hemisensory deficits,ataxia, paralysis, tingling, numbness, unilateral weakness or numbness/tingling Positive- blurred vision prior to loss of consciousness, syncope, "jerking movements of head and arms with syncope ", dizziness prior to loss of con sciousness HEENT: Negative for any head trauma, neck trauma, neck stiffness, photophobia, phonophobia, decreased hearing or tinnitus CARDIAC: Negative for any chest pain, dyspnea on exertion, peripheral edema or palpitations MUSCULOSKELETAL: Chronic bilateral leg weakness and decreased activity tolerance Physical Examination - Vital Signs Vital Signs: Initial Vital Signs Temp Pulse Resp BP Pulse Ox 98.3 F 57 18 116/62 97 12/21/18 10:17 12/21/18 10:17 12/21/18 10:17 12/21/18 10:17 12/21/18 10:17 - Exam Exam: Examination: General Examination: *CONSTITUTIONAL: Alert and oriented x3, no acute distress *GENERAL APPEARANCE OF PATIENT generally ill-appearing obese elderly female *EYES: pupils equal, round, reactive to light and accommodation, conjunctiva clear without masses or ulcerations, bilateral cataracts present *CARDIOVASCULAR RRR, no peripheral edema, distal temperature normal, dorsalis pedis pulses normal. See vital signs Musculoskeletal: *GAIT AND STATION generalized weakness and bilateral lower extremities, K is dependent on use of her cane due to leg weakness right greater than left. *ASSESSMENT OF MUSCLE STRENGTH IN THE UPPER AND LOWER EXTREMITIES bilateral deltoid, bicep, tricep, electric tape slitter strength, hip flexors ,anterior tibialis, dorsoflexion of the foot 4/5 *MUSCLE TONE IN THE UPPER AND LOWER EXTREMITIES normal. Mild tremor present in her right hand, more pronounced with intention. No fasciculations or atrophy identified. Neurological: *ORIENTATION to person, situation, time and place *RECURRENT AND REMOTE MEMORY intact *ATTENTION AND CONCENTRATION are normal *LANGUAGE FUNCTION no significant aphasia or dysarthia was noted. *FUND OF KNOWLEDGE aware of current events, past history, vocabulary *MENTAL attention span and concentration normal. *CN II optic fundi were normal, no papilledema noted. *CN III,IV, PERRLA extraocular eye movements were full, no nystagmus and no ptosis noted. *CN V shows normal sensation and jaw opens symmetrically. *CN VII shows normal facial movement symmetrically, upper and lower bilaterally. *CN VIII shows no significant hearing loss on exam *CN IX,,X palate elevated symmetrically *CN XI normal strength in the sternocleidomastoid muscles, symmetrical shoulder shrugging. *CN XII tongue protruded in the midline, with normal strength and movement. *SENSORY EXAMINATION light touch intact *REFLEXES: deep tendon reflexes were normal and symmetrical in all muscle groups of the bilateral arms, grade 2/4 diffusely. She has absent patellar and Achilles reflexes, no pathological reflexes were noted. *CEREBELLAR TESTING normal finger to nose, heel/knee/charles *PAIN LEVEL 0/10 Results - Laboratory Findings CBC and BMP: 12/23/18 04:31 12/23/18 04:31 Abnormal lab findings: Abnormal lab results RBC 3.39 M/mcL (3.82-4.97) L 12/23/18 04:31 Hgb 10.7 g/dL (11.5-15.4) L 12/23/18 04:31 Hct 32.5 % (35.3-44.9) L 12/23/18 04:31 RDW 15.1 % (11.5-14.5) H 12/23/18 04:31 Sodium 134 mEq/L (136-145) L 12/23/18 04:31 BUN 30 mg/dL (8-23) H 12/23/18 04:31 1.43 mg/dL (0.60-1.20) H 12/23/18 04:31 Est GFR ( Amer) 44 (> 60) L 12/23/18 04:31 Est GFR (Non-Af Amer) 36 (> 60) L 12/23/18 04:31 Glucose 160 mg/dL (70-105) H 12/23/18 04:31 POC Glucose 169 mg/dL (70-99) H 12/22/18 20:17 8.0 % (-5.6) H 12/21/18 10:41 105 Units/L (34-104) H 12/22/18 03:58 LDL Cholesterol, Calc 111 mg/dL (0-99) H 12/22/18 03:58 - Diagnostic Findings Additional findings: CT/CT head/brain wo con IMPRESSION: 1.No acute intracranial abnormality. Consult Discharge Plan - Plan Instructions: Syncope (DC), Syncope (GEN) Referrals: Adelfo Rodriguez MD [Partnered Physician] - 12/27/18 2:00 pm () Deborah Traylor DO [Partnered Physician] - 01/30/19 2:30 pm <Kirill Austin I - Last Filed: 12/24/18 15:15> Date of Encounter: 12/23/18 Assessment and Plan (1) Syncope Status: Acute I have personally performed a face to face diagnostic evaluation, including HPI, EXAM, which is included in the Assesment and plan, which was discussed with Arjun Maxwell CNP, I agree with the above outlined documentation. Patient did not have any significant focal motor deficit on examination MRI/ MRA showed No acute intracranial abnormality. No acute infarct. question of high-grade focal stenosis involving a proximal right M2 branch. Otherwise, no convincing flow limiting stenosis of the visualized [id number] its a branch intracranial stenosis, suggest Medical treatment with Antiplatelet therapy as well as statin f/u as out pt in one month OK to DC from neuro stand point Kirill Austin MD Qualifiers: Syncope type: unspecified Qualified Code(s): R55 - Syncope and collapse History of Present Illness HPI: Ms. Pearl is a 68 year old female All Systems: The remainder of the systems were reviewed and are negative Physical Examination - Vital Signs Vital Signs: Initial Vital Signs Temp Pulse Resp BP Pulse Ox 98.3 F 57 18 116/62 97 12/21/18 10:17 12/21/18 10:17 12/21/18 10:17 12/21/18 10:17 12/21/18 10:17 Results - Laboratory Findings CBC and BMP: 12/23/18 04:31 12/23/18 04:31 Abnormal lab findings: Abnormal lab results RBC 3.39 M/mcL (3.82-4.97) L 12/23/18 04:31 Hgb 10.7 g/dL (11.5-15.4) L 12/23/18 04:31 Hct 32.5 % (35.3-44.9) L 12/23/18 04:31 RDW 15.1 % (11.5-14.5) H 12/23/18 04:31 Sodium 134 mEq/L (136-145) L 12/23/18 04:31 BUN 30 mg/dL (8-23) H 12/23/18 04:31 1.43 mg/dL (0.60-1.20) H 12/23/18 04:31 Est GFR ( Amer) 44 (> 60) L 12/23/18 04:31 Est GFR (Non-Af Amer) 36 (> 60) L 12/23/18 04:31 Glucose 160 mg/dL (70-105) H 12/23/18 04:31 POC Glucose 169 mg/dL (70-99) H 12/22/18 20:17 8.0 % (-5.6) H 12/21/18 10:41 105 Units/L (34-104) H 12/22/18 03:58 LDL Cholesterol, Calc 111 mg/dL (0-99) H 12/22/18 03:58
[2018-12-23 15:46] VITALS: BP 119/74
--- NOTE | 2018-12-23 15:57 | Discharge Summary ---
- NOTES TO OUTPATIENT PROVIDER Notes to Outpatient Provider: f/u with PCP in one week. Please wear holter mnitor for 48 hrs and f/u with your cardiac cath lab technologist Dr. Traylor in one week to discuss about results. Orders not resulted at time of discharge: Pending orders 12/23/18 15:49 ECG 48 holter monitor setup [ECG] Routine Date of Encounter: 12/23/18 Time of Encounter: 15:53 - Discharge Diagnosis (1) Syncope Priority: Primary Status: Acute Qualifiers: Syncope type: unspecified Qualified Code(s): R55 - Syncope and collapse (2) Breast CA Priority: Secondary Status: Chronic Qualifiers: Breast location: lower outer quadrant of breast Estrogen receptor status: unspecified Patient sex: female Laterality: left Qualified Code(s): C50.512 - Malignant neoplasm of lower-outer quadrant of left female breast (3) Hypertension Priority: Secondary Status: Chronic Qualifiers: Hypertension type: essential hypertension Qualified Code(s): I10 - Essential (primary) hypertension (4) Osteoarthritis Priority: Secondary Status: Acute Qualifiers: Osteoarthritis location: hip Osteoarthritis type: primary Laterality: bilateral Qualified Code(s): M16.0 - Bilateral primary osteoarthritis of hip (5) Morbid obesity with BMI of 50.0-59.9, adult Priority: Secondary Status: Chronic (6) Asthma Priority: Secondary Status: Chronic Qualifiers: Asthma severity: unspecified severity Asthma persistence: unspecified Asthma complication type: unspecified Qualified Code(s): J45.909 - Unspecified asthma, uncomplicated (7) CKD (chronic kidney disease) stage 3, GFR 30-59 ml/min Priority: Secondary Status: Chronic (8) CAD (coronary artery disease) Priority: Secondary Status: Acute Qualifiers: Coronary Disease-Associated Artery/Lesion type: [place] artery [place] vs. transplanted heart: [place] heart Associated angina: angina presence unspecified Qualified Code(s): I25.10 - Atherosclerotic heart disease of [place] coronary artery without angina pectoris (9) S/P coronary artery stent placement Priority: Secondary Status: Acute Hospital course: Ms. Pearl is a 68 year old female with known past medical history of CAD status post PCI, hypertension, hyperlipidemia, diabetes type II, fibromyalgia, CKD-3, and breast cancer pt who was brought into the ER by family after she experiencing episode of syncope while at resting. The whole episode lasted for 2 to 3 minutes. Patient was slightly confused for a couple of minutes after the episode. In the ER her CT of the head did not show any acute intracranial hemorrhage/ischemia. She was admitted in the hospital placed on cardiac cath lab technologist. Her initial troponin came back is negative. Patient was evaluated by neurologist, who did MRA of Head / Neck which did not show any significant stenosis. Her brain MRI did not show any acute infarction. Her carotid Doppler came back as essentially normal bilaterally. Her echocardiogram showed LVEF 65%, LV diastolic dysfunction. At this point her syncope seems to be most likely vasovagal reaction. However since patient is high risk for cardiac problems, will discharge her home on Holter monitor for 48 hours. - Time Spent with Patient Total time spent providing and/or coordinating discharge services: - Discharge Medications Prescriptions: Continued Albuterol Sulfate [Proair Hfa] 2 puff IH Q4-6H PRN PRN Reason: Shortness Of Breath Allopurinol [Zyloprim 300 MG] 150 mg PO DAILY Anastrozole [Arimidex] 1 mg PO DAILY Budesonide/Formoterol 80/4.5 [Symbicort 80/4.5] 2 puff IH BID Calcium Carbonate/Vitamin D3 [Caltrate 600 + D Soft Chew Tab] 1 tab PO BID Cetirizine HCl [24Hour Allergy] 10 mg PO DAILY Duloxetine HCl [Cymbalta] 60 mg PO DAILY Furosemide [Lasix] 40 mg PO DAILY Gabapentin [Neurontin] 400 mg PO BID Insulin LISPRO [HumaLOG] 10 - 25 unit SQ TIDAC Insulin NPH, HUMAN [HumuLIN N] 25 unit SQ QPM Insulin NPH, HUMAN [HumuLIN N] 30 unit SQ QAM Ipratropium/Albuterol Neb [Duoneb] 3 ml IH Q6HR PRN PRN Reason: dyspnea Melatonin 10 mg PO HS PRN PRN Reason: Sleep Metoprolol Succinate 100 mg PO BID Montelukast [Singulair] 10 mg PO HS Multivitamin [One Daily Multivitamin] 1 tab PO DAILY Oxybutynin Chloride [Ditropan Xl] 10 mg PO DAILY Spironolactone 25 mg PO DAILY Tramadol HCl [Ultram] 50 mg PO TID PRN PRN Reason: Mild To Moderate Pain Isosorbide MONOnitrate [Isosorbide Mononitrate ER] 60 mg PO DAILY Nitroglycerin 0.4 mg SL Q5MIN PRN #30 tab.subl PRN Reason: Chest Pain Clopidogrel [Plavix] 75 mg PO DAILY #30 tablet Lactobacillus Acidophilus [Acidophilus] 1 each PO TID Vit A/Vit C/Vit E/Zinc/Copper [Preservision Areds Tablet] 1 each PO BID Mupirocin [Centany At] 1 each TP TID PRN PRN Reason: "ingrown hair" Atorvastatin Calcium [Lipitor] 40 mg PO HS Ranolazine [Ranexa] 1,000 mg PO BID Aspirin [Lo-Dose Aspirin EC] 81 mg PO DAILY Losartan Potassium 50 mg PO DAILY Pantoprazole Sodium 40 mg PO DAILY Home Medications: Albuterol Sulfate [Proair Hfa] 2 puff IH Q4-6H PRN 05/30/18 [History] Allopurinol [Zyloprim 300 MG] 150 mg PO DAILY 05/30/18 [History] Anastrozole [Arimidex] 1 mg PO DAILY 05/30/18 [History] Budesonide/Formoterol 80/4.5 [Symbicort 80/4.5] 2 puff IH BID 05/30/18 [History] Calcium Carbonate/Vitamin D3 [Caltrate 600 + D Soft Chew Tab] 1 tab PO BID 05/30/18 [History] Cetirizine HCl [24Hour Allergy] 10 mg PO DAILY 05/30/18 [History] Duloxetine HCl [Cymbalta] 60 mg PO DAILY 05/30/18 [History] Furosemide [Lasix] 40 mg PO DAILY 05/30/18 [History] Gabapentin [Neurontin] 400 mg PO BID 05/30/18 [History] Insulin LISPRO [HumaLOG] 10 - 25 unit SQ TIDAC 05/30/18 [History] Insulin NPH, HUMAN [HumuLIN N] 25 unit SQ QPM 05/30/18 [History] Insulin NPH, HUMAN [HumuLIN N] 30 unit SQ QAM 05/30/18 [History] Ipratropium/Albuterol Neb [Duoneb] 3 ml IH Q6HR PRN 05/30/18 [History] Melatonin 10 mg PO HS PRN 05/30/18 [History] Metoprolol Succinate 100 mg PO BID 05/30/18 [History] Montelukast [Singulair] 10 mg PO HS 05/30/18 [History] Multivitamin [One Daily Multivitamin] 1 tab PO DAILY 05/30/18 [History] Oxybutynin Chloride [Ditropan Xl] 10 mg PO DAILY 05/30/18 [History] Spironolactone 25 mg PO DAILY 05/30/18 [History] Tramadol HCl [Ultram] 50 mg PO TID PRN 05/30/18 [History] Isosorbide MONOnitrate [Isosorbide Mononitrate ER] 60 mg PO DAILY 08/16/18 [History] Clopidogrel [Plavix] 75 mg PO DAILY #30 tablet 08/17/18 [Rx] Nitroglycerin 0.4 mg SL Q5MIN PRN #30 tab.subl 08/17/18 [Rx] Lactobacillus Acidophilus [Acidophilus] 1 each PO TID 10/05/18 [History] Mupirocin [Centany At] 1 each TP TID PRN 10/06/18 [History] Vit A/Vit C/Vit E/Zinc/Copper [Preservision Areds Tablet] 1 each PO BID 10/06/18 [History] Atorvastatin Calcium [Lipitor] 40 mg PO HS 12/14/18 [History] Ranolazine [Ranexa] 1,000 mg PO BID 12/14/18 [History] Aspirin [Lo-Dose Aspirin EC] 81 mg PO DAILY 12/22/18 [History] Losartan Potassium 50 mg PO DAILY 12/22/18 [History] Pantoprazole Sodium 40 mg PO DAILY 12/22/18 [History] Allergies/Adverse Reactions: Allergy/AdvReac Type Severity Reaction Status Date / Time Amoxicillin [From Augmentin] AdvReac Vomiting Verified 12/22/18 14:10 blue dye AdvReac See Verified 12/22/18 14:10 Comments cefdinir AdvReac Itching Verified 12/22/18 14:10 clavulanic acid AdvReac Vomiting Verified 12/22/18 14:10 [From Augmentin] linezolid [From Zyvox] AdvReac See Verified 12/22/18 14:10 Comments morphine AdvReac Vomiting Verified 12/22/18 14:10 pentazocine [From Talwin] AdvReac Vomiting Verified 12/22/18 14:10 rifampin AdvReac Vomiting Verified 12/22/18 14:10 Date of admission: 12/21/18 13:22 Primary care physician: PCP NONE Consults: 12/22/18 11:49 Consult to Interpret Exam [CONS] Routine Consulting Provider: Kirill Austin I Consult to Interpret Exam: Interpret EEG 12/23/18 10:44 Consult to Physical Therapy [CONS] Routine Comment: Evaluate, develop and implement POC Reason for Consult: Physical deconditioning Does patient have active BEDREST order?: No Is patient medically & hemodynamically stable?: Yes Patient assessed for mobility or mobilized this visit?: Yes - Constitutional Vitals: Temp Pulse Resp BP Pulse Ox 97.9 F 68 16 119/74 96 12/23/18 15:45 12/23/18 15:45 12/23/18 15:45 12/23/18 15:45 12/23/18 15:45 General appearance: Present: A&O X 3 Exam: Gen: Alert, awake, Oriented to time,place and person Chest: Diminished breath sounds B/L, No wheezing, No crackles, No rales Heart: S1S2+ RRR No murmurs Abd: Soft, NT, BS +, No organomegaly Ext: No edema, pulses are palpable, No calf tenderness Neuro : No acute focal neuro deficits noticed. Chronic generalized weakness and bilateral lower extremity noticed Skin: No rash. - Patient Status Disposition: Home, Self-Care Condition: Good Overall status at discharge: patient is back to baseline - Discharge Instructions Follow Up With: Adelfo Rodriguez MD [Partnered Physician] - 12/27/18 2:00 pm (Appointment has been requested.) Deborah Traylor DO [Partnered Physician] - - Diet and Activity Activity: increase activity as tolerated Diet: low salt diet
--- NOTE | 2018-12-23 15:58 | Event Note ---
Date of Encounter: 12/23/18 Time of Encounter: 16:00 - Cardiology Event Note Order placed for 48 hr holter per discussion with Dr. Liz for syncope.
== END 2018-12-23 16:40 | disposition home or self-care (01) ==
LOC: EMEROOARM 10:09 → 3BNU 10:09 → SUATTDRO 13:22 → 3BNU 14:32
PROVIDERS: ADMIT Internal Medicine Nephrology; ATTEND Family Medicine